=== PATIENT | male | born 1940 | race Caucasian/White ===

== ENCOUNTER → 2022-02-02 | Outpatient (CLI) | payer MEDICARE, OTHER ==
[2020-07-28 11:00] VITALS: BP 118/74
[~2022-02-02] MED LIST: ATOR40TA59 PO; CEFD300C PO; CITA40TA6 PO; CLOP75TA PO; DILT300C24 PO; FURO40TA4 PO; METO-239 PO; METO5TAB4 PO; MULT-690 PO; NITR0.4T22 SL; POTA-163 PO; RIVA20TA2 PO; TRAM50TA PO
--- NOTE | 2022-02-02 12:32 | RAD ---
INDICATION: Reason: CLAUDICATION / Spl. Instructions: / History: COMPARISON: None. FINDINGS: Spectral Doppler, color and grayscale ultrasound images are obtained of the bilateral leg arterial sy stem. The right dorsalis pedis and the left peroneal artery are not visualized therefore not assessed. Multifocal plaque is seen throughout the arterial system bilaterally. Monophasic waveform within the right common femoral artery with biphasic waveform in the deep femoral artery. There is a borderline biphasic/triphasic waveform within the superficial femoral artery with monophasic waveforms seen with in the right popliteal artery through the visualized calf vessels. Portions the vessels are not well seen secondary to overlying soft tissue structures obscuring. Monophasic waveform within the left common femoral artery as well as superficial femoral artery and v isualized portions of the left calf arteries. Multifocal plaque is seen throughout and appears severe in nature. IMPRESSION: * Severe bilateral atherosclerotic disease with multifocal regions of stenosis. There are monophasi c waveforms which increases in severity more distally within the bilateral legs which could be second candice to multifocal regions of hemodynamically significant stenosis. * The right dorsalis pedis and left peroneal arteries are not visualized. Could be small in caliber or occluded. Electronically signed by: Martin Villagomez MD (02/02/2022 12:30 PM) [id number]
== END ==
LOC: US 10:28
PROVIDERS: ATTEND Internal Medicine
DX: I70.203 Unspecified atherosclerosis of native arteries of extremities, bilateral legs (principal)
CPT/HCPCS: 93925